=== PATIENT | male | born 1970 | race Caucasian/White ===

== ENCOUNTER 2019-09-09 13:22 | Observation (INO) ==
[2019-09-09] MEDS ORDERED: Isovue-370 500 ML BOTTLE IVP ONE (14:02)
[2019-09-09] MEDS ORDERED: *HR* HYDROmorphone 2 MG/ML SYRINGE IVP STA (14:25)
[2019-09-09] MEDS ORDERED: *HR* HYDROmorphone (PF) 1 MG/ML SYRINGE IVP STA (14:25)
[2019-09-09 14:39] LABS: Basophils % 0.6 %; Eosinophils # 0.1 K/mcL (0.0-0.6); Eosinophils % 1.8 %; Hematocrit 43.8 % (37.5-50.1); Hemoglobin 14.7 g/dL (12.9-16.9); Immature Granulocytes % 0.2 % (0-4); Lymphocytes # 2.1 K/mcL (0.6-4.6); Lymphocytes % 41.7 %; Mean Corpuscular HGB Conc 33.6 g/dL (31.6-35.5); Mean Corpuscular Hemoglobin 29.5 pg (28.0-33.3); Mean Platelet Volume 10.6 fL (9.4-12.4); Monocytes # 0.4 K/mcL (0.0-1.3); Monocytes % 8.2 %; Neutrophils # 2.4 K/mcL (1.6-8.9); Platelet Count 151 K/mcL (140-400); Red Blood Count 4.98 M/mcL (4.19-5.50); Red Cell Distribution Width 13.2 % (11.5-14.5); Segmented Neutrophils % 47.5 %; White Blood Count 5.1 K/mcL (4.3-11.1)
[2019-09-09 14:51] LABS: Prothrombin Time 11.1 Seconds (9.4-12.1)
[2019-09-09 14:58] LABS: BUN/Creatinine Ratio 14 (6-26); Blood Urea Nitrogen 10 mg/dL (6-20); Carbon Dioxide 28 mEq/L (23-29); Chloride 104 mEq/L (98-107); Glucose 104 mg/dL (70-105); Osmolality,Calculated 285 (280-300); Potassium 3.7 mEq/L (3.5-5.1); Sodium 138 mEq/L (136-145); eGFR For African Americans > 60 (> 60); eGFR For Non-African Americans > 60 (> 60)
[2019-09-09] MEDS ORDERED: *HR* Heparin 5,000 UNIT/ML VIAL IVP PRN ×2 (16:25)
[2019-09-09] MEDS ORDERED: *HR* Heparin 5,000 UNIT/ML VIAL IVP ONE (16:25)
[2019-09-09] MEDS ORDERED: Heparin 25,000 UNIT/250 ML D5W 25,000 UNIT/250 ML IV.SOLN IVC SCH (16:30)
[2019-09-09] MEDS ORDERED: *HR* LORazepam 2 MG/ML VIAL IVP ONE (16:44)
[2019-09-09] MEDS ORDERED: Naloxone 0.4 MG/ML INJ IVP PRN (17:26)
[2019-09-09] MEDS ORDERED: ALPRAZolam 1 MG TABLET PO PRN (17:40)
[2019-09-09 18:41] LABS: Prothrombin Time 11.9 Seconds (9.4-12.1)
[2019-09-09 18:45] LABS: Heparin anti-factor XA UFH 1.46 IU/mL (0.30-0.70)
[2019-09-09 22:57] LABS: Activated Partial Thrombo Time > 360.0 Seconds (26.0-36.0)
[2019-09-10] MEDS: *HR* OxyCODONE Immed Rel 5 MG TABLET PO PRN ×3 (00:44→19:59)
[2019-09-10] MEDS ORDERED: DOXEPIN HCL PO SCH (01:00)
[2019-09-10] MEDS: Heparin 25,000 UNIT/250 ML D5W 25,000 UNIT/250 ML IV.SOLN IVC SCH ×2 (01:30→17:42)
[2019-09-10] MEDS ORDERED: *HR* HYDROmorphone (PF) 1 MG/ML SYRINGE IVP ONE ×2 (06:14→14:42)
[2019-09-10 06:29] LABS: Basophils % 0.7 %; Eosinophils # 0.2 K/mcL (0.0-0.6); Eosinophils % 2.7 %; Hematocrit 42.1 % (37.5-50.1); Hemoglobin 13.8 g/dL (12.9-16.9); Immature Granulocytes % 0.2 % (0-4); Lymphocytes % 51.5 %; Mean Corpuscular HGB Conc 32.8 g/dL (31.6-35.5); Mean Corpuscular Hemoglobin 29.2 pg (28.0-33.3); Mean Corpuscular Volume 89.2 fL (83.0-100.0); Mean Platelet Volume 11.1 fL (9.4-12.4); Monocytes # 0.5 K/mcL (0.0-1.3); Monocytes % 8.9 %; Neutrophils # 2.1 K/mcL (1.6-8.9); Platelet Count 151 K/mcL (140-400); Red Blood Count 4.72 M/mcL (4.19-5.50); Red Cell Distribution Width 13.3 % (11.5-14.5); White Blood Count 5.9 K/mcL (4.3-11.1)
[2019-09-10] MEDS ORDERED: *HR* OxyCODONE/APAP 10/325 TABLET PO PRN (07:28)
[2019-09-10 08:10] LABS: BUN/Creatinine Ratio 13 (6-26); Blood Urea Nitrogen 10 mg/dL (6-20); Calcium 8.5 mg/dL (8.6-10.3); Carbon Dioxide 29 mEq/L (23-29); Chloride 104 mEq/L (98-107); Glucose 107 mg/dL (70-105); Osmolality,Calculated 286 (280-300); Potassium 3.5 mEq/L (3.5-5.1); Sodium 138 mEq/L (136-145); eGFR For African Americans > 60 (> 60); eGFR For Non-African Americans > 60 (> 60)
[2019-09-10] MEDS: Divalproex (12 HR) 500 MG TABLET PO SCH ×2 (08:13→20:00)
[2019-09-10] MEDS: amLODIPine 5 MG TABLET PO SCH (08:14)
[2019-09-10] MEDS: Apixaban 5 MG TABLET PO SCH (17:40)
[2019-09-11 05:30] LABS: Hematocrit 40.7 % (37.5-50.1); Hemoglobin 13.4 g/dL (12.9-16.9); Mean Corpuscular HGB Conc 32.9 g/dL (31.6-35.5); Mean Corpuscular Hemoglobin 30.1 pg (28.0-33.3); Mean Corpuscular Volume 91.5 fL (83.0-100.0); Mean Platelet Volume 11.3 fL (9.4-12.4); Platelet Count 139 K/mcL (140-400); Red Blood Count 4.45 M/mcL (4.19-5.50); Red Cell Distribution Width 13.3 % (11.5-14.5); White Blood Count 5.5 K/mcL (4.3-11.1)
[2019-09-11 05:52] LABS: BUN/Creatinine Ratio 13 (6-26); Blood Urea Nitrogen 12 mg/dL (6-20); Calcium 8.3 mg/dL (8.6-10.3); Carbon Dioxide 29 mEq/L (23-29); Chloride 106 mEq/L (98-107); Creatine Kinase 45 Units/L (30-223); Glucose 117 mg/dL (70-105); Osmolality,Calculated 291 (280-300); Potassium 3.9 mEq/L (3.5-5.1); Sodium 140 mEq/L (136-145); eGFR For African Americans > 60 (> 60); eGFR For Non-African Americans > 60 (> 60)
[2019-09-11] MEDS: Apixaban 5 MG TABLET PO SCH (08:05)
[2019-09-11] MEDS: Divalproex (12 HR) 500 MG TABLET PO SCH (08:05)
[2019-09-11] MEDS: amLODIPine 5 MG TABLET PO SCH (08:05)
[2019-09-11 11:16] VITALS: BP 159/83
[2019-09-11] MEDS: *HR* OxyCODONE Immed Rel 5 MG TABLET PO PRN (13:50)
== END 2019-09-11 15:35 | disposition home or self-care (01) ==
LOC: SUATTDRO → EMEROOARM 13:22 → 2ANU 13:22 → SUATTDRO 18:04 → 2ANU 18:55
PROVIDERS: ADMIT Internal Medicine; ATTEND Internal Medicine